=== PATIENT | male | born 1995 | race African-American/Black ===

== ENCOUNTER 2016-11-28 11:41 | Emergency (ER) | payer MEDICAID ==
[~2016-11-28 11:41] MED LIST: Clindamycin Hcl PO; HYDR-3965 PO
== END 2016-11-28 12:33 | disposition left against medical advice (07) ==
LOC: EMS 11:43
DX: B99.9 Unspecified infectious disease (principal); Z53.21 Procedure and treatment not carried out due to patient leaving prior to being seen by health care provider

== ENCOUNTER 2016-11-28 20:57 | Emergency (ER) | payer MEDICAID ==
[~2016-11-28] VITALS: Ht 193 cm; Wt 79.5 kg
[2016-11-28] MEDS ORDERED: SULFAMETHOX/TRIMETH DS 800-160 MG/TABLET PO ONE (22:00)
[2016-11-28] MEDS ORDERED: CEPHALEXIN MONOHYDRATE 500 MG CAPSULE PO ONE (22:00)
[2016-11-28 22:04] VITALS: BP 124/61
== END 2016-11-28 22:31 | disposition home or self-care (01) ==
LOC: EMS 21:05
DX: L02.415 Cutaneous abscess of right lower limb (principal); B95.62 Methicillin resistant Staphylococcus aureus infection as the cause of diseases classified elsewhere; F12.90 Cannabis use, unspecified, uncomplicated; Z87.891 Personal history of nicotine dependence
CPT/HCPCS: 99283

== ENCOUNTER 2017-03-06 16:15 | Emergency (ER) | payer MEDICAID ==
[~2017-03-06] VITALS: Ht 193 cm; Wt 77.3 kg
[2017-03-06] MEDS ORDERED: LIDOCAINE HCL BUFFERED 1% 20 ML VIAL INJ ONE (19:00)
[2017-03-06] MEDS ORDERED: BACITRACIN 0.9 GM PACKET OINTMENT TP ONE (20:15)
[2017-03-06 20:35] VITALS: BP 118/76
== END 2017-03-06 20:39 | disposition home or self-care (01) ==
LOC: EMS 16:16
DX: S51.812A Laceration without foreign body of left forearm, initial encounter (principal); S01.81XA Laceration without foreign body of other part of head, initial encounter; S83.91XA Sprain of unspecified site of right knee, initial encounter; F12.90 Cannabis use, unspecified, uncomplicated; Z87.891 Personal history of nicotine dependence; Y04.2XXA Assault by strike against or bumped into by another person, initial encounter; Y93.51 Activity, roller skating (inline) and skateboarding; Y92.830 Public park as the place of occurrence of the external cause; Y99.8 Other external cause status
CPT/HCPCS: 12001; 12013; 70110; 73562; 99284; J3490

== ENCOUNTER 2017-03-13 14:43 | Emergency (ER) | payer SELFPAY ==
[~2017-03-13] VITALS: Ht 193 cm; Wt 81.8 kg
[2017-03-13 15:50] VITALS: BP 118/69
== END 2017-03-13 15:52 | disposition home or self-care (01) ==
LOC: EMS 14:44
DX: Z48.02 Encounter for removal of sutures (principal); Z87.891 Personal history of nicotine dependence; F12.90 Cannabis use, unspecified, uncomplicated
CPT/HCPCS: 99281

== ENCOUNTER 2017-09-19 14:19 | Emergency (ER) | payer MEDICAID ==
[~2017-09-19] VITALS: Ht 193 cm; Wt 84.5 kg
[2017-09-19 15:30] VITALS: BP 124/72
[2017-09-20] MEDS ORDERED: CEPH500 PO (17:39)
== END 2017-09-19 16:09 | disposition home or self-care (01) ==
LOC: EMS 14:20
DX: L03.211 Cellulitis of face (principal); Z87.891 Personal history of nicotine dependence
CPT/HCPCS: 10060; 99283

== ENCOUNTER 2017-09-20 17:30 | Emergency (ER) | payer MEDICAID ==
[~2017-09-20] VITALS: Ht 193 cm; Wt 81.8 kg
[2017-09-20] MEDS ORDERED: CEPH500 PO (17:39)
[2017-09-20] MEDS ORDERED: SULFAMETHOX/TRIMETH DS 800-160 MG/TABLET PO ONE (20:15)
[2017-09-20] MEDS ORDERED: LIDOCAINE HCL/PF 1% 2 ML VIAL IM ONE (20:15)
[2017-09-20] MEDS ORDERED: HYDROCODONE/ACETAMINOPHEN 5-325 MG TABLET PO ONE (20:15)
[2017-09-20] MEDS ORDERED: CefTRIAXone SODIUM 1 GM/VIAL IM ONE (20:15)
[2017-09-20 21:26] VITALS: BP 127/73
== END 2017-09-20 21:29 | disposition home or self-care (01) ==
LOC: EMS 17:31
DX: Z48.00 Encounter for change or removal of nonsurgical wound dressing (principal); F12.90 Cannabis use, unspecified, uncomplicated; Z87.891 Personal history of nicotine dependence
CPT/HCPCS: 96372; 99283; J0696; J3490

== ENCOUNTER 2017-12-22 17:00 | Emergency (ER) | payer MEDICAID ==
[~2017-12-22] VITALS: Ht 190.5 cm; Wt 80.0 kg
[~2017-12-22 17:00] MED LIST changes: +CEPH500 PO; -Clindamycin Hcl PO; -HYDR-3965 PO
[2017-12-22] MEDS ORDERED: LIDOCAINE HCL 1% 10 ML VIAL INJ ONE (18:00)
[2017-12-22 18:52] LABS: GLUCOSE,POINT OF CARE 93 MG/DL (70-110)
[2017-12-22 18:58] VITALS: BP 134/68
== END 2017-12-22 19:00 | disposition home or self-care (01) ==
LOC: EMS 17:01
DX: S62.636A Displaced fracture of distal phalanx of right little finger, initial encounter for closed fracture (principal); M20.011 Mallet finger of right finger(s); L03.113 Cellulitis of right upper limb; R03.0 Elevated blood-pressure reading, without diagnosis of hypertension; F17.210 Nicotine dependence, cigarettes, uncomplicated; F12.90 Cannabis use, unspecified, uncomplicated; W23.0XXA Caught, crushed, jammed, or pinched between moving objects, initial encounter; Y93.67 Activity, basketball; Y92.89 Other specified places as the place of occurrence of the external cause; Y99.8 Other external cause status
CPT/HCPCS: 10160; 73140; 82962; 99284; J3490